=== PATIENT | male | born 1940 | race Hispanic/Latino ===

== ENCOUNTER 2021-06-04 21:02 | Emergency (ER) | payer MEDICARE, SELFPAY ==
[2021-06-04] VITALS (14 sets, daily range): BP systolic 161–185; BP diastolic 77–85; PULSE 69–87; RESP 9–18; TEMP 36.7; O2SAT 99–100
--- NOTE | ~2021-06-04 | CT_ITS ---
EXAMINATION: CT brain wo con EXAM DATE: 06/04/2021 23:17 INDICATION: Head injury. Fall. TECHNIQUE: Spiral CT of the head was performed without contrast. Axial, coronal and sagittal images were reviewed. The dose-length product (DLP) for this examination was 605.33 mGy-cm. The exposure w as tailored according to patient size, and iterative reconstruction (ASIR) was used as additional dos e reduction technique. There is no prior study for comparison. 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 There is no acute intrapar enchymal hemorrhage. No evidence of acute infarction. Please note that initial head CT has limite d sensitivity for small or acute infarctions. There is an old small right occipital lobe infarction. There is moderate periventricular and subcortical hypodensity, nonspecific but probably related to small vessel ischemic disease. There is prominence of the sulci and ventricles related to cerebral atrophy. There is intracranial carotid arteriosclerosis. There are no extra-axial collections. Th ere is no mass effect or midline shift. The orbits are unremarkable. Soft tissue is unremarkable. The visualized sinuses and mastoid air cells are well aerated. IMPRESSION: 1. No acute intracranial findings. 2. Chronic age related findings. 3. 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 Reviewed, dictated and finalized at location .
--- NOTE | ~2021-06-04 | XR_ITS ---
EXAMINATION: XR shoulder LT min 2V EXAM DATE: 06/04/2021 22:57 INDICATION: Left shoulder pain., Fall. TECHNIQUE: The following left shoulder projections obtained: frontal projection with internal rotatio n, frontal projection with external rotation, Grashey, and scapular Y view (4+ views). There is no p rior study for comparison. FINDINGS: There is acute closed posttraumatic fracture through the left clavicle just proximal to the acromioclavicular joint. No appreciable displacement. The glenoid, scapula, humeral head are unremar kable. IMPRESSION: Acute left clavicular shaft fracture, distally. Reviewed, dictated and finalized at location G.
--- NOTE | ~2021-06-04 | XR_ITS ---
EXAMINATION: XR shoulder RT min 2V EXAM DATE: 06/04/2021 22:57 INDICATION: Right shoulder pain, after injury. Initial encounter. TECHNIQUE: The following right shoulder projections obtained: frontal projection with internal rotati on, frontal projection with external rotation, Grashey, and scapular Y view (4+ views). There is no prior study for comparison. FINDINGS: There are no acute right shoulder fractures or dislocations identified. There is no subcut aneous gas. The soft tissue is unremarkable. There are no radiopaque foreign bodies. 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 IMPRESSION: No acute osseous findings. Reviewed, dictated and finalized at location G. IMPRESSION: No acute osseous findings.
--- NOTE | ~2021-06-04 | XR_ITS ---
EXAMINATION: XR hip BI 2V w AP pelvis EXAM DATE: 06/04/2021 22:57 INDICATION: Fall today, hip and pelvic pain. Initial encounter. TECHNIQUE: Each hip imaged independently (separate right and also left hip) 'frog leg' and frontal p rojections for interpretation. Frontal projection pelvis. There is no prior study for comparison. FINDINGS: No radiographic evidence of hip avascular necrosis. There are no acute hip or pelvic fract ures or dislocations identified. There is no subcutaneous gas. The soft tissue is unremarkable. L umbar fusion hardware. Spine stimulator pack. IMPRESSION: 1. Hip, pelvic exam without acute osseous findings. Reviewed, dictated and finalized at location G.
--- NOTE | ~2021-06-04 | XR_ITS ---
EXAMINATION: XR knee LT min 4V EXAM DATE: 06/04/2021 22:57 INDICATION: Fall, left knee pain. Initial encounter. TECHNIQUE: Left knee frontal, crosstable lateral, orthogonal oblique projections for interpretation. There is no prior study for comparison. FINDINGS: No evidence osteochondral defect or joint body in the left knee joint. There are no acute fractures or dislocations identified. There is no subcutaneous gas. The soft tissue is unremarkabl e. There are no radiopaque foreign bodies. IMPRESSION: 1. XR knee LT min 4V exam without acute osseous findings. Reviewed, dictated and finalized at location G.
--- NOTE | ~2021-06-04 | CT_ITS ---
EXAMINATION: CT facial & cervical spine wo EXAM DATE: 06/04/2021 23:17 INDICATION: Fall, head injury. TECHNIQUE: Spiral CT of the facial bones was acquired in the axial plane. Coronal reformatted images were also reviewed. Spiral CT of the cervical spine was performed without contrast. Axial images we re reviewed. Coronal and sagittal reformatted images were also reviewed. The dose-length product (DL P) for this examination was 505.40 mGy-cm. The exposure was tailored according to patient size, and iterative reconstruction (ASIR) was used as additional dose reduction technique. There is no prior s tudy for comparison. FINDINGS: FACIAL CT: There are no displaced acute nasal bone fractures. The mandible, sinuses and orbits are i ntact. The orbits, globes and extraocular muscles are unremarkable. Cataract surgery. Small amount of mucoperiosteal thickening, trace fluid in the right maxillary sinus.Multiple dental cavities. Smal l amount of gas in the right cavernous sinus, probably introduced through the patient's IV. No eviden ce of skull base fracture. CERVICAL CT: There is no evidence of acute cervical fracture. The odontoid process is intact. Pre-d ens space is normal. Prevertebral soft tissue is normal. There are no soft tissue abnormalities kimberly ntified. There is no disc space widening or traumatic vertebral body subluxation suspected. Vertebr al body and disc heights are well-maintained. A detailed level by level evaluation of spondylosis c an be added as addendum if requested. IMPRESSION: 1. No acute facial or cervical fracture. 2. 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 Reviewed, dictated and finalized at location G. IMPRESSION: 1. No acute facial or cervical fracture. 2. 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
--- NOTE | 2021-06-04 22:41 | PC.NURSE ---
Pt. is getting a catscan at this time.
[2021-06-04] MEDS: ACETAMINOPHEN 500 MG TABLET 1000 MG PO (23:29)
--- NOTE | 2021-06-04 23:54 | ED.FALL ---
HPI - Fall General Chief Complaint: Fall Stated Complaint: glf lac lf eye rt should pain Time Seen by Provider: 06/04/21 21:53 Source: patient and RN notes reviewed Mode of arrival: EMS Limitations: dementia History of Present Illness HPI Narrative: This is a 80 year old male who presents from [facility] who presents for evaluation after a fall. Patient states he was walking with walker and he fell when he tried to bend over. He state he hit his head on wall but he denies LOC. He complains of bilateral shoulder pain and bilateral hip pain. He had a laceration to left eye brow that was steri stripped prior to arrival. He denies headache, dizziness, nausea, vomiting. He reports mild neck pain. He denies chronic anticoagulation. He denies rib pain, chest pain or sob. Related Data Home Medications Medication Instructions Recorded Confirmed acetaminophen 325 mg PO ONCE 06/04/21 06/04/21 amlodipine 10 mg PO DAILY 06/04/21 06/04/21 ascorbic acid (vitamin C) 500 mg PO DAILY 06/04/21 06/04/21 aspirin 81 mg PO DAILY 06/04/21 06/04/21 atorvastatin 80 mg PO DAILY 06/04/21 06/04/21 carvedilol 12.5 mg PO BID 06/04/21 06/04/21 fenofibrate 54 mg PO DAILY 06/04/21 06/04/21 gabapentin 100 mg PO TID 06/04/21 06/04/21 isosorbide mononitrate 30 mg PO DAILY 06/04/21 06/04/21 levetiracetam 750 mg PO BID 06/04/21 06/04/21 levothyroxine 100 mcg PO DAILY 06/04/21 06/04/21 lidocaine [Lidoderm] 5 patch 06/04/21 losartan 100 mg PO DAILY 06/04/21 06/04/21 mirtazapine 15 mg PO DAILY 06/04/21 06/04/21 oxcarbazepine 600 mg PO BID 06/04/21 06/04/21 quetiapine 25 mg PO BID 06/04/21 06/04/21 Allergies Allergy/AdvReac Type Severity Reaction Status Date / Time lisinopril Allergy Rash Verified 06/04/21 21:29 Review of Systems Review of Systems: All systems reviewed & are unremarkable except as noted in HPI and below Constitutional: Constitutional: Denies chills and Denies fever(s) Cardiovascular: Cardiovascular: Denies chest pain Respiratory: Respiratory: Denies dyspnea Gastrointestinal: Gastrointestinal: Denies abdominal pain, Denies diarrhea, Denies nausea and Denies vomiting Neurologic: Denies dizziness and Denies headache(s) [facility] Past Medical History Medical History (Updated 06/05/21 @ 00:32 by Sophia Ledbetter MD) Lewy body dementia TIA (transient ischemic attack) Surgical History Surgical History (Updated 06/05/21 @ 00:27 by Sophia Ledbetter MD) Surgical history unknown Social History Social History (Updated 06/05/21 @ 00:27 by Sophia Ledbetter MD) Smoking status: Smoker, status unknown Gender identity (if verbalized by the patient): Male Exam Const: General: alert Orientation/consciousness: patient oriented x3 Eyes: EOM: EOMs intact bilaterally Neck: Neck: normal visual inspection Chest: Chest palpation & inspection: normal inspection of the chest Resp: Effort & Inspection: normal respiratory effort and no retractions Auscultation: clear to auscultation bilaterally Cardio: Rate: regular rate Rhythm: regular rhythm Heart sounds: no murmurs GI: GI Palp: Yes Soft to palpation, No Tenderness to palpation present (GI) and No Guarding due to palpation present (GI) Auscultation: normal bowel sounds Neuro: General: patient oriented x3, moves all extremities and CN's II-XI intact bilaterally Extrem: Other: pain bilateral shoulders with abduction. abrasion to right shoulder. Psych: Mental Status: mental status grossly normal Affect: normal affect Course Reevaluation(s) Reevaluation #1: Patient was placed in left shoulder sling for his clavicle fracture. 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 He was able to ambulate. Date: 06/05/21 Time: 00:28 Vital Signs Vital signs: Vital Signs Temperature 98.1 F 06/04/21 21:25 Pulse Rate 76 06/04/21 21:25 Respiratory Rate 12 06/04/21 21:25 Blood Pressure
[2021-06-05] VITALS (13 sets, daily range): BP systolic 154–189; BP diastolic 73–88; PULSE 61–82; RESP 12–20; O2SAT 95–98
[2021-06-05] MEDS: TETANUS,DIPHTHERIA,AC PERTUSSIS ADULT (0.5 ML) BOOSTRIX IM (00:31)
--- NOTE | 2021-06-05 03:38 | PC.NURSE ---
Report to Kristy nurse at [facility].
[2021-06-05] MEDS: HYDROmorphone HCL INJ (*CRX) 1 MG/ML SYR (05:52)
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
== END 2021-06-05 08:10 ==
PROVIDERS: Emergency Provider General Practice
DX: S01.112A Laceration without foreign body of left eyelid and periocular area, initial encounter (principal); S42.022A Displaced fracture of shaft of left clavicle, initial encounter for closed fracture; S40.011A Contusion of right shoulder, initial encounter; M25.552 Pain in left hip; M25.551 Pain in right hip; E23.7 Disorder of pituitary gland, unspecified; Z79.82 Long term (current) use of aspirin; G31.83 Neurocognitive disorder with Lewy bodies; F02.80 Dementia in other diseases classified elsewhere, unspecified severity, without behavioral disturbance, psychotic disturbance, mood disturbance, and anxiety; Z86.73 Personal history of transient ischemic attack (TIA), and cerebral infarction without residual deficits; Z23 Encounter for immunization; G93.9 Disorder of brain, unspecified; W18.39XA Other fall on same level, initial encounter
CPT/HCPCS: 70450; 70486; 72125; 73030; 73521; 73564; 90471; 90715; 96374; 99284; A4565; A9270; J1170

== ENCOUNTER 2021-06-05 21:36 | Emergency (ER) | payer MEDICARE, SELFPAY ==
[2021-06-05] VITALS (18 sets, daily range): BP systolic 136–187; BP diastolic 70–91; PULSE 73–93; RESP 12–24; TEMP 36.2; O2SAT 96–100
--- NOTE | ~2021-06-05 | XR_ITS ---
EXAMINATION: XR chest 2V EXAM DATE: 06/05/2021 22:10 INDICATION: MID chest pain, history of myocardial infarction at age 47. Shortness of breath and high blood pressure. TECHNIQUE: Frontal and lateral projections of the chest obtained and reviewed. There is no prior [place] dy for comparison. FINDINGS: Sternotomy wires are present without findings to suggest sternal dehiscence. Spine stimula tor device with leads projecting over mid thoracic level. The lungs are clear. There are no pleural effusions. The cardiomediastinal silhouette is within normal limits. There is no pneumothorax suspe cted. The bones and soft tissues are unremarkable. IMPRESSION: No acute cardiopulmonary findings. Reviewed, dictated and finalized at location A.
--- NOTE | ~2021-06-05 | CT_ITS ---
EXAMINATION: CTA chest PE protocol DATE: 06/06/2021 00:21 INDICATION: Chest pain, shortness of breath. Elevated d-dimer. TECHNIQUE: Computed tomography angiography (CTA) of the chest was performed with 100 mL Omnipaque-350 intravenous contrast timed to evaluate the pulmonary arteries. Coronal maximum intensity projection 3D-reconstructions were created by the technologist. Automated exposure control and iterative reconst ruction technique were employed. Exam dose: 585.58 mGy-cm total exam DLP. COMPARISON: 06/01/2021 2 view chest FINDINGS: There is diagnostic contrast enhancement of the pulmonary arteries and no evidence of pulmo nary embolism. Thoracic aortic calcification; no thoracic aortic aneurysm or dissection. No hilar or mediastinal mass lesion or lymphadenopathy. Status post sternotomy. Heart size is within normal range. No pericardial or pleural effusion. Peripheral reticular infiltrates of the right upper and particularly lower lung zones may be due to m ild infiltrate, atelectasis or chronic interstitial change. Normal morphology of the adrenal glands. Incidental finding of diverticulosis of the colon. Thoracic spinal canal leads. IMPRESSION: No evidence of pulmonary embolism Reviewed, dictated and finalized at Location A. Reviewed, dictated and finalized at location A.
--- NOTE | 2021-06-05 21:48 | ECG_ITS ---
Measurements Intervals [place] Rate: 80 P: 3 AR: 172 QRS: -70 QRSD: 165 T: 63 QT: 442 QTc: 510 Interpretive Statements SINUS RHYTHM RIGHT BUNDLE BRANCH BLOCK LEFT ANTERIOR FASCICULAR BLOCK BASELINE ARTIFACT- I, II, III, AVR, AVL, AVF, V1-V2 ABNORMAL ECG Electronically Signed On 06-06-2021 6:42:15 CDT by Dandre Blanco D.O.
--- NOTE | 2021-06-05 21:57 | PC.NURSE ---
Patient in xray at this time.
[2021-06-05 22:00] LABS: Basophils Absolute Auto 0.1 K/mm3 (0.0-0.1); Basophils Percent Auto 0.7 % (0.2-1.2); Eosinophils Absolute Auto 0.5 K/mm3 (0-0.3); Eosinophils Percent Auto 6.8 % (0-4.4); Hematocrit 35.2 % (42.0-52.0); Hemoglobin 11.6 g/dL (14.0-18.0); Immature Granulocyte Absolute 0.02 K/mm3 (0.00-0.031); Immature Granulocyte Percent A 0.3 % (0-0.5); Lymphocytes Absolute Auto 2.05 K/mm3 (0.9-3.2); Lymphocytes Percent Auto 27.9 % (18.3-44.2); Mean Corpuscular Hemoglobin 28.8 pg (26-34); Mean Corpuscular Volume 87.3 fl (80-100); Mean Platelet Volume 10.2 fl (7.4-10.4); Monocytes Absolute Auto 0.8 K/mm3 (0.1-0.6); Monocytes Percent Auto 10.3 % (2.6-8.5); Platelet Count Result 182 k/mm3 (150-375); Red Blood Count 4.03 M/mm3 (4.6-6.20); Red Cell Distribution Width 14.1 % (11.5-14.5); White Blood Count 7.4 K/mm3 (4.5-10.0)
[2021-06-05 22:09] LABS: INR 0.9; Prothrombin Time 11.9 Seconds (11.1-14.7)
[2021-06-05 22:10] LABS: Partial Thromboplastin Time 30.2 SECONDS (22.3-36.8)
[2021-06-05 22:33] LABS: Troponin I < 0.012 ng/mL (0.000-0.034)
[2021-06-05 22:43] LABS: Anion Gap 10 mmol/L (8-16); Blood Urea Nitrogen 18 mg/dL (9-20); Calcium 9.8 mg/dL (8.4-10.2); Carbon Dioxide 23 mmol/L (22-30); Chloride 98 mmol/L (98-107); Estimated Glomerular Filt Rate > 60; Glucose 87 mg/dL (65-110); Potassium 4.5 mmol/L (3.4-5.0); Sodium 131 mmol/L (137-145)
--- NOTE | 2021-06-05 23:38 | ED.SOB ---
HPI - SOB/Dyspnea General Chief Complaint: Shortness of Breath/Dyspnea Stated Complaint: back pain Time Seen by Provider: 06/05/21 22:45 Source: patient, family and RN notes reviewed Mode of arrival: EMS Limitations: dementia History of Present Illness HPI Narrative: This is a 80 year old male with history of Lewy body dementia, CAD s/p CABG who [facility] and back pain. EMS reports patient started having chest pain 30 minutes prior to arrival. Patient states pain is located all over his chest. He is unsure of any exacerbating factors. He also reports back pain. His daughter reports he has history of CABG years ago. He was seen in ER yesterday for a fall, and he was not complaining of chest pain or back pain that time. He is confused and hallucinating. His daughter states that has been going on since December. Related Data Home Medications Medication Instructions Recorded Confirmed acetaminophen 325 mg PO ONCE 06/04/21 06/04/21 amlodipine 10 mg PO DAILY 06/04/21 06/04/21 ascorbic acid (vitamin C) 500 mg PO DAILY 06/04/21 06/04/21 aspirin 81 mg PO DAILY 06/04/21 06/04/21 atorvastatin 80 mg PO DAILY 06/04/21 06/04/21 carvedilol 12.5 mg PO BID 06/04/21 06/04/21 fenofibrate 54 mg PO DAILY 06/04/21 06/04/21 gabapentin 100 mg PO TID 06/04/21 06/04/21 isosorbide mononitrate 30 mg PO DAILY 06/04/21 06/04/21 levetiracetam 750 mg PO BID 06/04/21 06/04/21 levothyroxine 100 mcg PO DAILY 06/04/21 06/04/21 lidocaine [Lidoderm] 5 patch 06/04/21 losartan 100 mg PO DAILY 06/04/21 06/04/21 mirtazapine 15 mg PO DAILY 06/04/21 06/04/21 oxcarbazepine 600 mg PO BID 06/04/21 06/04/21 quetiapine 25 mg PO BID 06/04/21 06/04/21 Allergies Allergy/AdvReac Type Severity Reaction Status Date / Time lisinopril Allergy Rash Verified 06/04/21 21:29 Review of Systems Review of Systems: ROS unobtainable: Yes other (dementia) [facility] Past Medical History Medical History (Updated 06/06/21 @ 02:37 by Sophia Ledbetter MD) Lewy body dementia TIA (transient ischemic attack) Surgical History Surgical History (Updated 06/05/21 @ 23:42 by Sophia Ledbetter MD) Hx of CABG Social History Social History (Updated 06/05/21 @ 00:27 by Sophia Ledbetter MD) Smoking status: Smoker, status unknown Gender identity (if verbalized by the patient): Male Exam Const: General: no acute distress and alert Eyes: Pupils: Equal, round and reactive pupils present EOM: EOMs intact bilaterally Chest: Chest palpation & inspection: normal inspection of the chest and no tenderness Resp: Effort & Inspection: normal respiratory effort and no retractions Auscultation: clear to auscultation bilaterally Cardio: Rate: regular rate Rhythm: regular rhythm Heart sounds: no murmurs GI: GI Palp: Yes Soft to palpation, No Tenderness to palpation present (GI) and No Guarding due to palpation present (GI) Auscultation: normal bowel sounds Neuro: General: patient oriented x3, moves all extremities and CN's II-XI intact bilaterally Psych: Mental Status: mental status grossly normal Affect: normal affect Course Reevaluation(s) Reevaluation #1: PAtient is resting comfortable. He denies having any pain currently. I have discussed with his daughter that labs are unremarkable currently. It is unclear if this is anginal. given that patient is not having pain and troponin has been negative. She is agreeable with discharge and follow up with warehouse shift supervisor. Date: 06/06/21 Time: 02:32 Consultations Consultation #1: I have discussed case with DR. Fleming of cardiology. She agrees patient can follow up as outpatient. She will have office call daughter to get appointment to establish care Date: 06/06/21 Time: 02:33 Vital Signs Vital signs: Vital Signs Temperature 97.2 F L 06/05/21 21:39 Pulse Rate 79 06/05/21 21:39 Respiratory Rate 22 H 06/05/21 21:39 Blood Pressure 178/74 H 06/05/21 21:39 Pulse Ox
[2021-06-05] MEDS: MORPHINE SULFATE (*CRX) 4 MG/ML INJ IV PUSH (23:41)
[2021-06-05] MEDS: ONDANSETRON INJ 4 MG/2 ML VIAL IV PUSH (23:41)
[2021-06-05] MEDS: NITROGLYCERIN OINTMENT 1 INCH DOSE TRANSDERM (23:42)
[2021-06-05 23:56] LABS: D Dimer 0.65 ug/mL (<0.48)
[2021-06-06] VITALS (17 sets, daily range): BP systolic 138–171; BP diastolic 69–87; PULSE 79–93; RESP 11–18; TEMP 36.7; O2SAT 96–99
--- NOTE | 2021-06-06 00:10 | PC.NURSE ---
Patient taken to CT via stretcher at this time.
[2021-06-06 01:13] LABS: Troponin I < 0.012 ng/mL (0.000-0.034)
== END 2021-06-06 02:54 ==
PROVIDERS: Emergency Provider General Practice
DX: R07.9 Chest pain, unspecified (principal); M54.9 Dorsalgia, unspecified; I25.10 Atherosclerotic heart disease of native coronary artery without angina pectoris; Z95.1 Presence of aortocoronary bypass graft; G31.83 Neurocognitive disorder with Lewy bodies; F02.80 Dementia in other diseases classified elsewhere, unspecified severity, without behavioral disturbance, psychotic disturbance, mood disturbance, and anxiety; Z86.73 Personal history of transient ischemic attack (TIA), and cerebral infarction without residual deficits; I45.2 Bifascicular block
CPT/HCPCS: 36415; 71046; 71275; 80048; 84484; 85025; 85380; 85610; 85730; 90471; 90715; 93005; 96374; 96375; 99284; A4565; A9270; J1170; J2270; J2405; Q9967

== ENCOUNTER 2021-06-09 10:28 | Observation (INO) | payer MEDICARE, SELFPAY ==
[2021-06-09] VITALS (10 sets, daily range): BP systolic 125–179; BP diastolic 60–89; PULSE 69–82; RESP 14–21; TEMP 36.3–36.8; O2SAT 99–100
--- NOTE | ~2021-06-09 | CT_ITS ---
EXAMINATION: CT brain wo con DATE: 06/09/2021 11:17 INDICATION: Altered mental status TECHNIQUE: Computed tomography (CT) of the head was performed without intravenous contrast. Sagittal and coronal reconstructions were performed. The mA was adjusted according to patient size. Iterative reconstruction technique was employed. The dose-length product was 681.00 mGy-cm. COMPARISON: head CT dated 12/05/2020 FINDINGS: Unchanged small region of encephalomalacia in the right occipital lobe consistent with chronic infarc t. No acute intracranial hemorrhage, acute infarction or abnormal extra axial fluid collection. There is moderate scattered white matter hypoattenuation consistent with chronic small vessel ischemic dis ease. Symmetric prominence of the sulci and ventricles consistent with mild age-appropriate diffuse c erebral volume loss. Again seen is an the centrally positioned intrasellar mass which expands the lef t side of the sella turcica measuring 1.7 x 1.5 x 1.3 cm and which is slightly hyperdense to the pitu itary, similar in attenuation to the vessels. Changes of bilateral intraocular lens replacement. Muco chelsey thickening at the inferior right maxillary sinus. Middle ear cavities and mastoid air cells are c lear. Intracranial calcified cerebral atherosclerosis is noted. IMPRESSION: 1. No acute intracranial process. 2. 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 Recommend pre an d post contrast pituitary protocol brain MRI. 3. Small old infarct in the right occipital lobe and moderate scattered white matter hypoattenuation consistent with chronic small vessel ischemic disease. Reviewed, dictated and finalized at location A. IMPRESSION: 1. No acute intracranial process. 2. 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 Recommend pre and post contrast pituitary protocol brain MRI. 3. Small old infarct in the right occipital lobe and moderate scattered white m atter hypoattenuation consistent with chronic small vessel ischemic disease.
--- NOTE | ~2021-06-09 | XR_ITS ---
XR chest 1V portable 06/09/2021 11:30 Indication: Altered mental status. Left-sided chest bruising. Procedure: AP portable chest Comparison: 06/05/2021 Findings: Status post median sternotomy for CABG. Heart size normal. Shallow inspiration. No focal ai r space disease, pulmonary edema, pleural effusion or suspected pneumothorax. There are spinal stimul ator leads overlying the thoracic spine. No acute osseous abnormality. Impression: 1: No acute cardiopulmonary disease. Reviewed, dictated and finalized at location A. Impression: 1: No acute cardiopulmonary disease.
--- NOTE | 2021-06-09 10:59 | ECG_ITS ---
Measurements Intervals [place] Rate: 75 P: 18 VA: 184 QRS: 134 QRSD: 174 T: -2 QT: 427 QTc: 479 Interpretive Statements SINUS RHYTHM RIGHT BUNDLE BRANCH BLOCK LEFT POSTERIOR FASCICULAR BLOCK BASELINE ARTIFACT- II, III, AVF, V1-V2 ABNORMAL ECG Electronically Signed On 06-10-2021 9:34:43 CDT by Dandre Blanco D.O.
--- NOTE | 2021-06-09 11:32 | PC.NURSE ---
Fall precautions are in place including a bed alarm
[2021-06-09 11:43] LABS: Basophils Percent Auto 0.6 % (0.2-1.2); Eosinophils Absolute Auto 0.5 K/mm3 (0-0.3); Eosinophils Percent Auto 8.5 % (0-4.4); Hematocrit 35.9 % (42.0-52.0); Hemoglobin 11.7 g/dL (14.0-18.0); Immature Granulocyte Absolute 0.01 K/mm3 (0.00-0.031); Immature Granulocyte Percent A 0.2 % (0-0.5); Lymphocytes Absolute Auto 1.14 K/mm3 (0.9-3.2); Lymphocytes Percent Auto 21.1 % (18.3-44.2); Mean Corpuscular HGB Conc 32.6 g/dl (32-36); Mean Corpuscular Hemoglobin 29.2 pg (26-34); Mean Corpuscular Volume 89.5 fl (80-100); Mean Platelet Volume 9.8 fl (7.4-10.4); Monocytes Absolute Auto 0.6 K/mm3 (0.1-0.6); Monocytes Percent Auto 10.7 % (2.6-8.5); Neutrophils Absolute Auto 3.2 K/mm3 (1.3-6.7); Neutrophils Percent Auto 58.9 % (45.5-73.1); Platelet Count Result 158 k/mm3 (150-375); Red Blood Count 4.01 M/mm3 (4.6-6.20); Red Cell Distribution Width 14.1 % (11.5-14.5); White Blood Count 5.4 K/mm3 (4.5-10.0)
[2021-06-09 11:53] LABS: INR 0.9; Prothrombin Time 12.3 Seconds (11.1-14.7)
[2021-06-09 11:54] LABS: Alanine Aminotransferase 22 U/L (4-50); Alkaline Phosphatase 55 U/L (38-126); Anion Gap 8 mmol/L (8-16); Aspartate Amino Transferase 30 U/L (17-59); Bilirubin,Total 0.4 mg/dL (0.2-1.3); Blood Urea Nitrogen 15 mg/dL (9-20); Calcium 9.3 mg/dL (8.4-10.2); Carbon Dioxide 29 mmol/L (22-30); Chloride 100 mmol/L (98-107); Estimated Glomerular Filt Rate > 60; Glucose 72 mg/dL (65-110); Partial Thromboplastin Time 29.8 SECONDS (22.3-36.8); Potassium 3.9 mmol/L (3.4-5.0); Sodium 137 mmol/L (137-145)
--- NOTE | 2021-06-09 11:57 | ED.GENADULT ---
HPI - General Adult General Chief complaint: Fall Stated complaint: AMS Time Seen by Provider: 06/09/21 10:50 Source: patient, EMS, RN notes reviewed and old records reviewed Mode of arrival: EMS Limitations: dementia History of Present Illness HPI narrative: This is a 80 year old male with history of Dementia [facility]. Nursing staff reports patient was combative this morning. Patient was evaluated for a fall 5 days ago after suffering a fall. He had no acute intracranial hemorrhage at that time. He was found to have a left clavicle fracture. Patient was combative at night during that ED visit. He is confused at baseline. Related Data Home Medications Medication Instructions Recorded Confirmed acetaminophen 325 mg PO ONCE 06/04/21 06/04/21 amlodipine 10 mg PO DAILY 06/04/21 06/04/21 ascorbic acid (vitamin C) 500 mg PO DAILY 06/04/21 06/04/21 aspirin 81 mg PO DAILY 06/04/21 06/04/21 atorvastatin 80 mg PO DAILY 06/04/21 06/04/21 carvedilol 12.5 mg PO BID 06/04/21 06/04/21 fenofibrate 54 mg PO DAILY 06/04/21 06/04/21 gabapentin 100 mg PO TID 06/04/21 06/04/21 levetiracetam 750 mg PO BID 06/04/21 06/04/21 levothyroxine 100 mcg PO DAILY 06/04/21 06/04/21 lidocaine [Lidoderm] 5 patch DAILY 06/04/21 losartan 100 mg PO DAILY 06/04/21 06/04/21 mirtazapine 15 mg PO DAILY 06/04/21 06/04/21 oxcarbazepine 600 mg PO BID 06/04/21 06/04/21 quetiapine 25 mg PO BID 06/04/21 06/04/21 cholecalciferol (vitamin D3) 50 mcg PO BID 06/09/21 isosorbide mononitrate [Imdur] 30 mg PO DAILY 06/09/21 Allergies Allergy/AdvReac Type Severity Reaction Status Date / Time lisinopril Allergy Rash Verified 06/04/21 21:29 Review of Systems Review of Systems: ROS unobtainable: Yes unobtainable due to mental status PMFSH Past Medical History Medical History Lewy body dementia TIA (transient ischemic attack) Surgical History Surgical History (Updated 06/05/21 @ 23:42 by Sophia Ledbetter MD) Hx of CABG Social History Social History (Updated 06/05/21 @ 00:27 by Sophia Ledbetter MD) Smoking status: Never smoker Second hand tobacco smoke exposure: No Alcohol intake: never Substance use: never Gender identity (if verbalized by the patient): Male Sexual Orientation (if Verbalized by the Patient): Straight or Heterosexual Spiritual care concerns: No Exam Const: General: no acute distress and alert HENMT: Head: normocephalic and atraumatic Face and sinus: face symmetric Mouth: Yes Normal oral and palatal mucosa present, Yes lip normal, Yes oropharynx normal and Yes moist mucous membranes Eyes: EOM: EOMs intact bilaterally Chest: Other: left shoulder and upper chest ecchymosis Resp: Effort & Inspection: normal respiratory effort and no retractions Auscultation: clear to auscultation bilaterally Cardio: Rate: regular rate Rhythm: regular rhythm Heart sounds: no murmurs GI: GI Palp: Yes Soft to palpation, No Tenderness to palpation present (GI) and No Guarding due to palpation present (GI) Auscultation: normal bowel sounds Neuro: General: moves all extremities Psych: Mental Status: mental status grossly normal Affect: normal affect Course Reevaluation(s) Reevaluation #1: PAtient's daughter is at bedside. She states patient is more altered than usual. I have discussed No acute abnormalities have been found. He may be having progression of his dementia. HE is more lethargic than he was on Monday. Will admit for observation to hospitalist service. Date: 06/09/21 Time: 14:00 Consultations Consultation #1: I discussed case with Alycia Luciano. She request care coordination involvement for possible [facility] psych but he has been declined. She accepts to service. Date: 06/09/21 Time: 15:40 Vital Signs Vital signs: Vital Signs Pulse Rate 82 06/09/21 10:28 Respiratory Rate 14 06/09/21 10:28 B
[2021-06-09 11:58] LABS: Add Urine Microscopic? NO; Appearance Urine Clear (Clear); Bilirubin Urine Negative (Negative); Blood Urine Negative (Negative); Color Urine Yellow (Yellow); Glucose Urine UA Negative (Negative); Ketones Urine Negative (Negative); Leukocyte Esterase Ur Negative LEU/UL (Negative); Nitrate Urine Negative (Negative); Protein Urine Negative (Negative); RBC Urine 0-2 /hpf (0-2); Specific Grav Ur 1.012 (1.001-1.035); Urobilinogen Urine Negative mg/dL (<2.0); WBC Urine 0-3 /hpf
--- NOTE | 2021-06-09 13:52 | PCCCNOTE ---
Addendum entered by Kayla Meza RN 06/09/21 15:08: Update: [facility] is unable to accomodate for this patient's needs at this time Original Note: Clinicals faxed to [facility] (psych) as requested. Included in fax were reports from this ER visit and the last 2 ER visits and POA paperwork
--- NOTE | 2021-06-09 13:59 | PCCCNOTE ---
No keith-psych beds currently available at [facility]. [phone]
--- NOTE | 2021-06-09 14:05 | PCCCNOTE ---
Addendum entered by Kayla Meza RN 06/09/21 14:31: 1431. No adult bed availability at this time Original Note: Awaiting return call from [facility] in [place], [place]
--- NOTE | 2021-06-09 14:09 | PCCCNOTE ---
No bed availability at [facility] [phone]. Call back after 7pm for potential bed opening
--- NOTE | 2021-06-09 14:24 | PCCCNOTE ---
[facility]. [phone]. No current bed availability
--- NOTE | 2021-06-09 14:27 | PCCCNOTE ---
[facility]. [phone]. No bed availability at this time.
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
--- NOTE | 2021-06-09 18:52 | ADMGEN ---
This patient, Graett Guerrero, was admitted to [facility] Surg Room 305-02. Patient/family oriented to hospital policies and general routines including ID bracelet, bed and alarms, visiting hours, pain management, procedures, bathroom and other care routines, personal items, smoking policy, room service/diet, and visiting hours. Information on how to activate the Rapid Response Team has been discussed. Patient/Family are encouraged to report perceived risks to care and to ask questions if they do not understand what they are told or what they should do.
[2021-06-10] MEDS: LORazepam INJ (*CRX) 2 MG/ML VIAL 1 MG IV PUSH (01:16)
[2021-06-10] MEDS: HALOPERIDOL LACTATE 5 MG/ML VIAL IM (01:16)
[2021-06-10] MEDS: diphenhydrAMINE HCl INJ 50 MG/ML VIAL 25 MG IV PUSH (01:16)
--- NOTE | 2021-06-10 01:26 | PC.NURSE ---
Patient is confused and getting aggressive with staff. Will no longer talk in [place]ican. Does stop trying to throw thing when spoken Belgian to but only for a short period. Attempted x2 to given patient in oral medication. Got aggressive with staff and started spitting at staff. Attempted to have a quiet environment but it did not help, patient got even more upset, started yelling and whistling. Patient was taken to the bathroom and pain medication offered but did not work, patient just repeated I need a drink!, You got get me a drink in Belgian. Family has been notified and asked to sit but refused due to patient getting violent with them. Notified MD of the multiple attempts to calm patient down but was not successful. Medication was given due to the increase safety risk for the patient. Bed alarm is on and staff by room if assistance if needed.
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
[2021-06-10] MEDS: ASPIRIN 81 MG CHEWABLE TABLET PO (08:40)
[2021-06-10] MEDS: GABAPENTIN 100 MG CAPSULE PO ×2 (08:40→12:36)
[2021-06-10] MEDS: amLODIPine BESYLATE 5 MG TABLET 10 MG PO (08:40)
[2021-06-10 08:41] VITALS: PULSE 80
[2021-06-10] MEDS: ATORVASTATIN 40 MG TABLET 80 MG PO (08:41)
[2021-06-10] MEDS: levETIRAcetam 250 MG TABLET 750 MG PO (08:41)
[2021-06-10] MEDS: carvediloL 12.5 MG TABLET PO (08:41)
[2021-06-10] MEDS: QUEtiapine FUMARATE 25 MG TABLET PO (08:42)
[2021-06-10] MEDS: LOSARTAN POTASSIUM 100 MG TABLET PO (08:42)
[2021-06-10] MEDS: ISOSORBIDE MONONITRATE 30 MG TAB.ER.24H PO (08:42)
[2021-06-10] MEDS: OXcarbazepine 300 MG TABLET 600 MG PO (08:43)
--- NOTE | 2021-06-10 13:03 | PM.DS ---
DS: Admitting Diagnosis Admitting Diagnosis Lewy body dementia DS: Discharge Diagnosis Discharge Diagnosis (1) Abnormal brain CT: Code(s): R90.89 - Other abnormal findings on diagnostic imaging of central nervous system Status: Acute (2) Lewy body dementia with behavioral disturbance: Code(s): G31.83 - Dementia with Lewy bodies; F02.81 - Dementia in other diseases classified elsewhere with behavioral disturbance Status: Acute (3) Seizure disorder: Code(s): G40.909 - Epilepsy, unspecified, not intractable, without status epilepticus Status: Acute (4) Paroxysmal atrial fibrillation: Code(s): I48.0 - Paroxysmal atrial fibrillation Status: Acute (5) Hypertension: Code(s): I10 - Essential (primary) hypertension Status: Acute (6) Dyslipidemia: Code(s): E78.5 - Hyperlipidemia, unspecified Status: Acute (7) Fracture of shaft of left clavicle: Code(s): S42.022A - Displaced fracture of shaft of left clavicle, initial encounter for closed fracture Status: Acute DS: Summary Hospital Course Hospital Course: This is a 80-year-old male with hypertension, hyperlipidemia, hypothyroidism, seizure disorder, and fairly new diagnosis of Lewy body dementia who presented to the emergency department earlier today via EMS from [facility] for evaluation of agitation. patient had head CT today that showed a 1.7 cm sellar mass expanding to left side of the tunica. And olds a small old infarct in the right occipital lobe and moderate scattered white matter hypoattenuation consistent with cough chronic small vessel ischemia. Chest CT showed no evidence of pulmonary edema, pneumonia, with heart size normal. Chest x-ray showed no acute cardio pulmonary disease. Labs upon admission were stable and remains stable at this time. UA shows no signs infection. Patient did receive Haldol and Ativan along with Benadryl for calming affect. Patient is being discharged to [facility] for evaluation of agitation and psychosis. [facility] is fully aware that the patient is coming in [place] have orders for psychiatric drugs and a consult for a physician. Patient denies any chest pain, shortness of breath, nausea, vomiting, sweats, chills, constipation, diarrhea, numbness and tingling. Patient does say that his back hurts but hurts all the time and the area where his left clavicle is broken is bruised and swollen however patient is able to uses arm. I did talk to the patient's daughter about the patient's care in the next steps for him. Patient did talk to Sho and everything has been set up for this patient to receive the proper care that he needs. The daughter does say that the patient does have problems with hallucination and feels like she is his who had about 4 years ago. Status at Discharge Functional status at discharge: independent ambulation Overall status at discharge: patient is back to baseline Time Spent with Patient Time attestation: Total time spent providing and/or coordinating discharge services: 66 minutes Time spent: Greater than 30 minutes Specific discharge activities: Lab reviewed chart review, documentation, physical exam, family discussion, documentation, coordination of care. Exam Const: General: cooperative, healthy appearing, comfortable, no acute distress, well developed, alert, awake and tired appearing Nutritional Appearance: average body habitus and well nourished Orientation/consciousness: oriented to person, oriented to place, oriented to time and patient oriented x3 Limitations: no limitations HENMT: Head: normal to inspection and No palpable skull fracture present Ears: hearing grossly normal bilaterally General nose exam: Normal external nose present Face and sinus: face symmetric and abrasion on the left periorbital Mouth: Yes Normal oral and palatal mucosa present, Yes lip normal, Yes tongue normal and Yes moist mucous membranes abnormal
[2021-06-10 14:00] VITALS: BP 115/51; PULSE 73; RESP 16; TEMP 36.6; O2SAT 100
[2021-06-13 12:17] LABS: Levetiracetam Keppra 4.8 mcg/mL (12.0-46.0)
== END 2021-06-10 15:00 ==
LOC: ANHED 11:37 → ANH3MEDSUR 18:07
PROVIDERS: Physician Assistant; Admitting Provider Internal Medicine; Emergency Provider General Practice; Visit Provider Internal Medicine
DX: G31.83 Neurocognitive disorder with Lewy bodies (principal); F02.81 Dementia in other diseases classified elsewhere, unspecified severity, with behavioral disturbance; R45.1 Restlessness and agitation; R90.89 Other abnormal findings on diagnostic imaging of central nervous system; G40.909 Epilepsy, unspecified, not intractable, without status epilepticus; I48.0 Paroxysmal atrial fibrillation; S42.022A Displaced fracture of shaft of left clavicle, initial encounter for closed fracture; W19.XXXA Unspecified fall, initial encounter; E78.5 Hyperlipidemia, unspecified; E03.9 Hypothyroidism, unspecified; I25.10 Atherosclerotic heart disease of native coronary artery without angina pectoris; I10 Essential (primary) hypertension; R29.6 Repeated falls; Z86.73 Personal history of transient ischemic attack (TIA), and cerebral infarction without residual deficits; Z87.891 Personal history of nicotine dependence
CPT/HCPCS: 36415; 70450; 71045; 80053; 80177; 81003; 84443; 85025; 85610; 85730; 93005; 96365; 96372; 96375; 99285; A4565; A9270; G0378; J0131; J1200; J1630; J2060

== ENCOUNTER 2021-06-17 15:38 | Emergency (ER) | payer MEDICARE, SELFPAY ==
[2021-06-17] VITALS (8 sets, daily range): BP systolic 144–159; BP diastolic 69–88; PULSE 65–78; RESP 14–24; TEMP 36.5–36.9; O2SAT 96–99
--- NOTE | ~2021-06-17 | XR_ITS ---
XR hip BI 2V w AP pelvis DATE: 06/17/2021 16:31 INDICATION: Fall. Pelvic pain. TECHNIQUE: AP pelvis. AP and lateral views of each hip COMPARISON: 06/04/2021 pelvis and bilateral hips FINDINGS: Bilateral L4-5 pedicle screws and Steffee plates. Right sided generator device with leads e xtending into the spinal area, the distal leads excluded from this examination. The pubic symphysis and sacroiliac joints are intact. No pelvic fracture or bone destruction is detec maryan. No fracture, dislocation, avascular necrosis or bone destruction of either hip is evident. There is m ild hip osteoarthritis. IMPRESSION: No pelvic fracture or hip fracture Status post posterior L4-5 spinal fusion Reviewed, dictated and finalized at location B.
--- NOTE | ~2021-06-17 | CT_ITS ---
EXAMINATION: CT thoracic lumbar wo con DATE: 06/17/2021 16:37 INDICATION: Back pain. Fall. TECHNIQUE: Computed tomography (CT) of the thoracic and lumbar spine was performed without intravenou s contrast. Automated exposure control and iterative reconstruction technique were employed. The dose -length product was 1764.57 mGy-cm. COMPARISON: chest CT 06/06/21 FINDINGS: CT THORACIC SPINE: There is 9 degrees dextrocurvature of thoracic spine. There is mild chronic anteri or wedging of T8-T12 vertebral bodies. There is moderately decreased disc height at T7-T8 and mildly decreased disc height at T8-T9. There is multilevel facet joint osteoarthritis, mild at most levels. There is multilevel mild neural foraminal stenosis bilaterally. On the right, there is moderate neura l foraminal stenosis at T8-T9 and T9-T10. On the left, there is moderate neural foraminal stenosis at T7-T8. At T11-T12, there is mild central canal stenosis. There are epidural electrodes with tips at T6. CT LUMBAR SPINE: There is a 14 mm cyst in left kidney. There is 5 degrees dextrocurvature of lumbar spine. There are changes of posterior fusion procedure at L4-L5 with pedicle screws. There is mild ch ronic anterior wedging of L2 vertebral body. There is moderately decreased disc height at L2-L3 with endplate remodeling. The following disc levels are specifically discussed: L1-L2: The disc is bulging. There is mild right and severe left facet joint osteoarthritis. There is mild bilateral neural foraminal stenosis. There is mild central canal stenosis. L2-L3: The disc is bulging. There is moderate and mild left facet joint osteoarthritis. There is mild right and moderate left neural foraminal stenosis. There is mild central canal stenosis. L3-L4: The disc is bulging. There is moderate bilateral facet joint osteoarthritis. There is mild jeremias ateral neural foraminal stenosis. There is mild central canal stenosis. L4-L5: The disc is bulging. There is no facet joint hypertrophy. There is no neural foraminal stenosi s. There is no central canal stenosis. L5-S1: The disc is bulging. There is severe bilateral facet joint osteoarthritis. There is mild bilat eral neural foraminal stenosis. There is mild central canal stenosis. IMPRESSION: 1. No fracture. 2. Moderate thoracic and lumbar spondylosis. 3. Posterior fusion procedure at L4-L5. Reviewed, dictated and finalized at location A.
--- NOTE | ~2021-06-17 | CT_ITS ---
EXAMINATION: CT brain wo con DATE: 06/17/2021 16:34 INDICATION: Fall TECHNIQUE: Computed tomography (CT) of the head was performed without intravenous contrast. The mA wa s adjusted according to patient size. Iterative reconstruction technique was employed. Exam dose: 68 1.00 mGy-cm total exam DLP. COMPARISON: 06/09/2021 CT brain FINDINGS: Bilateral bilateral vertebral artery and basilar artery calcification. Bilateral Carotid si phon internal carotid artery calcification. There is nonspecific diminished attenuation of the cereb ral white matter, likely due to chronic small vessel ischemic changes. Old right occipital infarct. Moderate cerebral and cerebellar atrophy. No intracranial mass lesion or hemorrhage or recent cerebrovascular accident is evident. No midline shift or mass effect. No subdural or epidural hematoma. Again noted is a left sellar soft tissue mass with some destruction of the floor of the left sella tu rcica, with soft tissue mass projecting into the left sphenoid sinus. No skull fracture or bone destruction is noted otherwise. There is a polyp or mucous retention cyst i n the posterior floor of the right maxillary sinus. The mastoid air cells and paranasal sinuses are o therwise normally developed and aerated. IMPRESSION: Left sellar soft tissue mass with destruction of the floor of the sella turcica, with tu mor projection into the sphenoid sinus. MRI is recommended for further evaluation. Cerebral atherosclerosis and chronic small vessel ischemic changes of the cerebral white matter Old right occipital infarct No skull fracture or acute intracranial finding following recent fall Reviewed, dictated and finalized at [facility]. Reviewed, dictated and finalized at [facility]. IMPRESSION: Left sellar soft tissue mass with destruction of the floor of the sella turcica, with tumor projection into the sphenoid sinus. MRI is recommende d for further evaluation. Cerebral atherosclerosis and chronic small vessel ischemic changes of the cereb ral white matter Old right occipital infarct No skull fracture or acute intracranial finding following recent fall
--- NOTE | ~2021-06-17 | XR_ITS ---
EXAMINATION: XR chest 1V DATE: 06/17/2021 16:31 INDICATION: Pelvic pain. Fall. TECHNIQUE: A single frontal view of the chest was obtained. COMPARISON: Chest single view 06/09/2021 FINDINGS: The chest demonstrates clear lungs without pneumonia, pleural effusion, or pneumothorax. Th e heart size is normal. Median sternotomy wires and mediastinal surgical clips are seen, likely from prior coronary artery bypass grafting. Epidural electrodes are noted. IMPRESSION: 1. No acute cardiopulmonary disease. Reviewed, dictated and finalized at [facility].
--- NOTE | ~2021-06-17 | CT_ITS ---
EXAMINATION: CT cervical spine wo con DATE: 06/17/2021 16:34 INDICATION: Neck injury. TECHNIQUE: Computed tomography (CT) of the cervical spine was performed without intravenous contrast. Automated exposure control and iterative reconstruction technique were employed. The dose-length pro duct was 257.07 mGy-cm. COMPARISON: CT cervical spine 06/04/2021 FINDINGS: Bone alignment is normal. Vertebral body heights are normal. There is moderately decreased disc height at C3-C4, mildly decreased disc height at C4-C5, and moderately decreased disc height at C6-C7 with endplate remodeling. There is a mass in the sella. The following disc levels are specifica lly discussed: C2-C3: There is no uncovertebral joint osteoarthritis. There is mild bilateral facet joint osteoarthr itis. There is no neural foraminal stenosis. There is no central canal stenosis. C3-C4: There is severe bilateral uncovertebral joint osteoarthritis. There is mild right and moderate left facet joint osteoarthritis. There is mild bilateral neural foraminal stenosis. There is mild ce ntral canal stenosis. C4-C5: There is mild bilateral uncovertebral joint osteoarthritis. There is moderate bilateral facet joint osteoarthritis. There is no neural foraminal stenosis. There is mild central canal stenosis. C5-C6: There is mild bilateral uncovertebral joint osteoarthritis. There is mild right and severe lef t facet joint osteoarthritis. There is mild left neural foraminal stenosis. There is mild central can al stenosis. C6-C7: There is severe bilateral uncovertebral joint osteoarthritis. There is mild bilateral facet rocio int osteoarthritis. There is mild left mild neural foraminal stenosis. There is no central canal sten osis. C7-T1: There is no uncovertebral joint osteoarthritis. There is severe bilateral facet joint osteoart hritis. There is no neural foraminal stenosis. There is no central canal stenosis. IMPRESSION: 1. No fracture. 2. Moderate cervical spondylosis. 3. 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 Reviewed, dictated and finalized at [facility].
--- NOTE | 2021-06-17 15:59 | ED.FALL ---
HPI - Fall General Chief Complaint: Fall Stated Complaint: FALL Time Seen by Provider: 06/17/21 15:58 Source: patient and EMS Mode of arrival: EMS Limitations: dementia History of Present Illness HPI Narrative: Patient is a 80-year-old with a history of hypertension, hyperlipidemia, hypothyroidism, seizure disorder, Lewy body dementia, pituitary tumor with transphenoidal resection x 2, who presents to the emergency department today for evaluation of fall. Patient is awake and alert to person and place, not to time. He states that he was ambulating in his room, trying to unlock a door when he lost his balance, falling to the floor. Patient states he is currently having headache pain, neck pain and back pain. Also reports pain in his groin region. States that he is unable to move his leg secondary to the pain. Patient denies any vision changes. No frontal chest pain or shortness of breath. No palpitations or prodromal symptoms prior to the fall. He denies any abdominal pain, nausea or vomiting. Unfortunately, patient is unable to get an MRI due to his spinal implant Related Data Home Medications Medication Instructions Recorded Confirmed acetaminophen 325 mg PO ONCE 06/04/21 06/09/21 amlodipine 10 mg PO DAILY 06/04/21 06/09/21 ascorbic acid (vitamin C) 500 mg PO DAILY 06/04/21 06/09/21 aspirin 81 mg PO DAILY 06/04/21 06/09/21 atorvastatin 80 mg PO DAILY 06/04/21 06/09/21 carvedilol 12.5 mg PO BID 06/04/21 06/09/21 fenofibrate 54 mg PO DAILY 06/04/21 06/09/21 gabapentin 100 mg PO TID 06/04/21 06/09/21 levothyroxine 100 mcg PO DAILY 06/04/21 06/09/21 lidocaine [Lidoderm] 5 patch DAILY 06/04/21 06/09/21 losartan 100 mg PO DAILY 06/04/21 06/09/21 mirtazapine 15 mg PO DAILY 06/04/21 06/09/21 oxcarbazepine 600 mg PO BID 06/04/21 06/09/21 quetiapine 25 mg PO BID 06/04/21 06/09/21 cholecalciferol (vitamin D3) 50 mcg PO BID 06/09/21 06/09/21 isosorbide mononitrate 30 mg PO DAILY 06/09/21 06/09/21 Allergies Allergy/AdvReac Type Severity Reaction Status Date / Time lisinopril Allergy Rash Verified 06/17/21 15:52 Review of Systems Review of Systems: CONSTITUTIONAL: Denies fever HEENT: Reports headache pain CARDIOVASCULAR: Denies chest pain RESPIRATORY: Denies cough or dyspnea. GASTROINTESTINAL: Denies abdominal pain SKIN: Denies rash MUSCULOSKELETAL: Reports neck and back pain, reports groin pain NEUROLOGIC: Reports headache PMFSH Past Medical History Medical History Chronic back pain Coronary artery disease Dyslipidemia Functional dyspepsia History of pituitary tumor Benign pituitary adenoma status post resection x2. Hypertension Lewy body dementia with behavioral disturbance Paroxysmal atrial fibrillation Seizure disorder Transient ischemic attack Surgical History Surgical History History of coronary artery bypass graft History of spinal surgery Patient reports having a total of 7 spinal surgeries including multiple fusions. It sounds as though he had a stimulator placed at 1 time which remains but is nonfunctioning. Status post transsphenoidal pituitary resection x2 for benign reasons. Social History Social History Social History: The patient grew up in [place], [place]. He is and has 3 children. 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 Former smoker and heavy drinker, has abstained for 33 years. His son, Jonathan Guerrero, is his healthcare power of deputy county attorney. His daughter, Ivette Horton is also in emergency contact and secondary power of deputy county attorney. Code status: Do not resuscitate. Exam Narrative: Nursing note and vitals reviewed. CONSTITUTIONAL: The patient appears thin, elderly. No distress. HEAD: Normocephalic and atraumatic. EYES: 2+ PERRL, EOMI, normal conjunctiva, anicteric EARS: External ears clear bilaterall
--- NOTE | 2021-06-17 16:09 | ECG_ITS ---
Measurements Intervals [place] Rate: 69 P: 29 CT: 143 QRS: -79 QRSD: 168 T: 64 QT: 453 QTc: 486 Interpretive Statements SINUS RHYTHM RIGHT BUNDLE BRANCH BLOCK LEFT ANTERIOR FASCICULAR BLOCK CANNOT RULE OUT SEPTAL INFARCT, AGE INDETERMINATE ABNORMAL ECG Electronically Signed On 06-17-2021 19:53:42 CDT by Dandre Blanco D.O.
[2021-06-17] MEDS: ONDANSETRON INJ 4 MG/2 ML VIAL IV PUSH (16:58)
[2021-06-17] MEDS: MORPHINE SULFATE (*CRX) 2 MG/ML INJ IV PUSH (16:58)
[2021-06-17] MEDS: SODIUM CHLORIDE 0.9% IV 500 ML 999 ML IV CONT (16:58)
[2021-06-17 17:33] LABS: Basophils Percent Auto 0.4 % (0.2-1.2); Eosinophils Absolute Auto 0.5 K/mm3 (0-0.3); Eosinophils Percent Auto 6.8 % (0-4.4); Hematocrit 33.8 % (42.0-52.0); Hemoglobin 10.8 g/dL (14.0-18.0); Immature Granulocyte Absolute 0.03 K/mm3 (0.00-0.031); Immature Granulocyte Percent A 0.4 % (0-0.5); Lymphocytes Absolute Auto 1.72 K/mm3 (0.9-3.2); Lymphocytes Percent Auto 22.4 % (18.3-44.2); Mean Corpuscular Volume 90.6 fl (80-100); Mean Platelet Volume 10.2 fl (7.4-10.4); Monocytes Absolute Auto 0.6 K/mm3 (0.1-0.6); Monocytes Percent Auto 7.9 % (2.6-8.5); Neutrophils Absolute Auto 4.8 K/mm3 (1.3-6.7); Neutrophils Percent Auto 62.1 % (45.5-73.1); Platelet Count Result 188 k/mm3 (150-375); Red Blood Count 3.73 M/mm3 (4.6-6.20); White Blood Count 7.7 K/mm3 (4.5-10.0)
[2021-06-17 17:43] LABS: Anion Gap 7 mmol/L (8-16); Blood Urea Nitrogen 24 mg/dL (9-20); Calcium 9.2 mg/dL (8.4-10.2); Carbon Dioxide 23 mmol/L (22-30); Chloride 107 mmol/L (98-107); Estimated CRCL calculation 48 ml/min; Estimated Glomerular Filt Rate 59; Glucose 92 mg/dL (65-110); Potassium 4.7 mmol/L (3.4-5.0); Sodium 137 mmol/L (137-145)
== END 2021-06-17 18:50 ==
PROVIDERS: Emergency Provider Emergency Medicine
DX: G93.89 Other specified disorders of brain (principal); R51.9 Headache, unspecified; I10 Essential (primary) hypertension; E78.5 Hyperlipidemia, unspecified; E03.9 Hypothyroidism, unspecified; G40.909 Epilepsy, unspecified, not intractable, without status epilepticus; G31.83 Neurocognitive disorder with Lewy bodies; F02.80 Dementia in other diseases classified elsewhere, unspecified severity, without behavioral disturbance, psychotic disturbance, mood disturbance, and anxiety; I25.10 Atherosclerotic heart disease of native coronary artery without angina pectoris; I48.0 Paroxysmal atrial fibrillation; Z86.73 Personal history of transient ischemic attack (TIA), and cerebral infarction without residual deficits; Z79.82 Long term (current) use of aspirin; Z95.1 Presence of aortocoronary bypass graft; Z98.1 Arthrodesis status; Z66 Do not resuscitate; W18.39XA Other fall on same level, initial encounter; M47.812 Spondylosis without myelopathy or radiculopathy, cervical region; M47.816 Spondylosis without myelopathy or radiculopathy, lumbar region; M47.814 Spondylosis without myelopathy or radiculopathy, thoracic region; I45.2 Bifascicular block; R94.31 Abnormal electrocardiogram [ECG] [EKG]
CPT/HCPCS: 36415; 70450; 71045; 72125; 72128; 72131; 73521; 80048; 85025; 93005; 96361; 96374; 96375; 99284; J1170; J2270; J2405; J7040

== ENCOUNTER 2021-07-24 18:33 | Emergency (ER) | payer MEDICARE, SELFPAY ==
--- NOTE | ~2021-07-24 | CT_ITS ---
EXAMINATION: CT cervical spine wo con DATE: 07/24/2021 20:26 INDICATION: Neck pain after fall TECHNIQUE: Computed tomography (CT) of the cervical spine was performed without intravenous contrast. The dose-length product was 117 mGy-cm. Automated exposure control and iterative reconstruction tech nique were employed. COMPARISON: CT dated 06/17/2021 FINDINGS: Reversal of cervical lordosis. There is degenerative anterolisthesis at C2-3. There is dege nerative disc disease at the remainder of the cervical spinal levels. No evidence for perched facet. There is moderate multilevel uncinate degenerative change. Lung apices are unremarkable. No acute fra cture or traumatic malalignment. IMPRESSION: 1. No acute abnormality of the cervical spine. Reviewed, dictated and finalized at [facility].
--- NOTE | ~2021-07-24 | CT_ITS ---
EXAMINATION: CT brain wo con DATE: 07/24/2021 20:26 INDICATION: Head injury. TECHNIQUE: Computed tomography (CT) of the head was performed without intravenous contrast. The dose- length product was 681.00 mGy-cm. Automated exposure control and iterative reconstruction technique w ere employed. COMPARISON: CT dated 06/17/2021 FINDINGS: There is a left frontal scalp hematoma. There is a sellar mass measuring 2.2 x 2 cm. There is a chronic right occipital lobe infarction. There is generalized atrophy. There are scattered moder ate periventricular and subcortical white matter changes, most likely related to small vessel ischemi c disease (microangiopathy). There is minimal mucosal thickening of the ethmoid sinuses. No depressed skull fractures. Mastoids are pneumatized. No acute intracranial hemorrhage, infarction, mass or mas s effect. IMPRESSION: 1. No acute intracranial abnormality. 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 3: Chronic right occipital lobe infarction. Reviewed, dictated and finalized at location [facility].
[2021-07-24 18:33] VITALS: BP 129/68; PULSE 81; RESP 16; TEMP 36.6; O2SAT 99
[2021-07-24] MEDS: TETANUS,DIPHTHERIA,AC PERTUSSIS ADULT (0.5 ML) BOOSTRIX IM (21:04)
--- NOTE | 2021-07-24 21:10 | ED.GENADULT ---
HPI - General Adult General Chief complaint: Fall Stated complaint: Ground level fall/ head lac Time Seen by Provider: 07/24/21 20:02 History of Present Illness HPI narrative: Patient is a 80-year-old gentleman presents the emergency department chief complaint of head injury. Patient fell out of a wheelchair at his assisted struck his head has a laceration to his left forehead. They are unsure whether there was loss of consciousness denies nausea vomiting patient does have baseline dementia and his history is limited due to this. Related Data Home Medications Medication Instructions Recorded Confirmed acetaminophen 325 mg PO ONCE 06/04/21 06/09/21 amlodipine 10 mg PO DAILY 06/04/21 06/09/21 ascorbic acid (vitamin C) 500 mg PO DAILY 06/04/21 06/09/21 aspirin 81 mg PO DAILY 06/04/21 06/09/21 atorvastatin 80 mg PO DAILY 06/04/21 06/09/21 carvedilol 12.5 mg PO BID 06/04/21 06/09/21 fenofibrate 54 mg PO DAILY 06/04/21 06/09/21 gabapentin 100 mg PO TID 06/04/21 06/09/21 levothyroxine 100 mcg PO DAILY 06/04/21 06/09/21 lidocaine [Lidoderm] 5 patch DAILY 06/04/21 06/09/21 losartan 100 mg PO DAILY 06/04/21 06/09/21 mirtazapine 15 mg PO DAILY 06/04/21 06/09/21 oxcarbazepine 600 mg PO BID 06/04/21 06/09/21 quetiapine 25 mg PO BID 06/04/21 06/09/21 cholecalciferol (vitamin D3) 50 mcg PO BID 06/09/21 06/09/21 isosorbide mononitrate 30 mg PO DAILY 06/09/21 06/09/21 Allergies Allergy/AdvReac Type Severity Reaction Status Date / Time lisinopril Allergy Rash Verified 06/17/21 15:52 Review of Systems Review of Systems: A 10 system review of systems was completed on the patient and is negative except for what is stated in the HPI. Nursing and ancillary documentation was reviewed. [facility] Past Medical History Medical History Chronic back pain Coronary artery disease Dyslipidemia Functional dyspepsia History of pituitary tumor Benign pituitary adenoma status post resection x2. Hypertension Lewy body dementia with behavioral disturbance Paroxysmal atrial fibrillation Seizure disorder Transient ischemic attack Surgical History Surgical History History of coronary artery bypass graft History of spinal surgery Patient reports having a total of 7 spinal surgeries including multiple fusions. It sounds as though he had a stimulator placed at 1 time which remains but is nonfunctioning. Status post transsphenoidal pituitary resection x2 for benign reasons. Social History Social History Social History: The patient grew up in [place], [place]. He is and has 3 children. 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 Former smoker and heavy drinker, has abstained for 33 years. His son, Jonathan Guerrero, is his healthcare power of workers compensation defense attorney. His daughter, Ivette Horton is also in emergency contact and secondary power of workers compensation defense attorney. Code status: Do not resuscitate. Sexual Orientation (if Verbalized by the Patient): . Exam Narrative: GENERAL: Well-appearing, well-nourished, and in no acute distress. HEAD: Normocephalic, there is a laceration present to the left forehead. EYES: PERRLA and EOMI. ENT: Nares clear, no rhinorrhea or epistaxis. Mucous membranes moist. NECK: Supple. CHEST: Clear to auscultation. No respiratory distress. HEART: Regular rate and rhythm. No murmur heard. Normal peripheral pulses. ABDOMEN: Soft, nontender, nondistended, normal active bowel sounds. EXTREMITIES: Normal range of motion. No edema. SKIN: Warm, dry, no rash. NEURO: No focal deficits. Alert and oriented x3. PSYCH: Normal mood and affect. Course Vital Signs Vital signs: Vital Signs Temperature 36.6 C 07/24/21 18:33 Pulse Rate 81 07/24/21 18:33 Respiratory Rate 16 07/24/21 18:33 Blood Pressure 129/68 07/24/21 18
[2021-07-24 21:36] VITALS: BP 132/71; PULSE 80; RESP 15; O2SAT 99
== END 2021-07-24 21:38 ==
PROVIDERS: Emergency Provider Emergency Medicine
DX: S01.81XA Laceration without foreign body of other part of head, initial encounter (principal); Z23 Encounter for immunization; G31.83 Neurocognitive disorder with Lewy bodies; F02.81 Dementia in other diseases classified elsewhere, unspecified severity, with behavioral disturbance; I25.10 Atherosclerotic heart disease of native coronary artery without angina pectoris; E78.5 Hyperlipidemia, unspecified; I10 Essential (primary) hypertension; I48.0 Paroxysmal atrial fibrillation; Z86.73 Personal history of transient ischemic attack (TIA), and cerebral infarction without residual deficits; G40.909 Epilepsy, unspecified, not intractable, without status epilepticus; Z95.1 Presence of aortocoronary bypass graft; Z98.1 Arthrodesis status; Z87.891 Personal history of nicotine dependence; Z66 Do not resuscitate; W05.0XXA Fall from non-moving wheelchair, initial encounter
CPT/HCPCS: 12013; 70450; 72125; 90471; 90715; 99284